=== PATIENT | male | born 1975 | race Caucasian/White ===

== ENCOUNTER 2022-04-03 18:00 | Outpatient (CLI) | payer BC | END 2022-04-03 18:01 | disposition home or self-care (01) | LOC: SLEEPLAB 18:00 | PROVIDERS: ATTEND Family Medicine | DX: G47.33 Obstructive sleep apnea (adult) (pediatric) (principal); F41.8 Other specified anxiety disorders; E66.9 Obesity, unspecified; R06.83 Snoring; Z68.31 Body mass index [BMI] 31.0-31.9, adult | CPT/HCPCS: 95800 ==

== ENCOUNTER 2023-09-19 15:27 | Outpatient (CLI) | payer OTHER | END 2023-09-19 15:28 | disposition home or self-care (01) | LOC: BICRAD 15:27 | DX: M47.26 Other spondylosis with radiculopathy, lumbar region (principal) | CPT/HCPCS: 72100 ==